=== PATIENT | male | born 1940 | race Hispanic/Latino ===

== ENCOUNTER 2023-09-29 07:11 | Day surgery (SDC) | payer MEDICARE ==
[~2023-09-29] VITALS: Ht 182.9 cm; Wt 98.4 kg
[2023-09-29] VITALS (11 sets, daily range): BP systolic 96–152; BP diastolic 56–84; PULSE 64–79; RESP 12–17
[~2023-09-29 07:11] MED LIST: INSU100V12 SQ; LEVO175C2 PO; TAMS-1 PO
[2023-09-29] MEDS: 0.9%NACL 1000ML 1,000 ML IV ONE (07:58)
[2023-09-29] MEDS ORDERED: PROPOFOL 10 MG/ML 20ML VIAL IV ONE (08:53)
== END 2023-09-29 10:20 | disposition home or self-care (01) ==
LOC: ENDO 07:11 → DAH 07:11 → ENDO 10:20
PROVIDERS: ATTEND Internal Medicine
DX: R93.3 Abnormal findings on diagnostic imaging of other parts of digestive tract (principal); I89.9 Noninfective disorder of lymphatic vessels and lymph nodes, unspecified; R93.2 Abnormal findings on diagnostic imaging of liver and biliary tract; E11.9 Type 2 diabetes mellitus without complications; E03.9 Hypothyroidism, unspecified; Z80.9 Family history of malignant neoplasm, unspecified; Z79.4 Long term (current) use of insulin; Z79.890 Hormone replacement therapy; Z98.890 Other specified postprocedural states
CPT/HCPCS: 43242; 82948 ×2; J7030; J2704; A4620; A4215; J3490